=== PATIENT | female | born 1970 | race Caucasian/White ===

== ENCOUNTER → 2017-11-21 | Outpatient (CLI) | payer BC | END | disposition home or self-care (01) | LOC: KCIC MAMMO 15:58 | DX: Z12.31 Encounter for screening mammogram for malignant neoplasm of breast (principal) | CPT/HCPCS: 77067 ==

== ENCOUNTER → 2017-11-29 | Outpatient (CLI) | payer BC | END | disposition home or self-care (01) | LOC: KCIC MAMMO 13:55 | DX: N63.21 Unspecified lump in the left breast, upper outer quadrant (principal) | CPT/HCPCS: 76641; 77065 ==

== ENCOUNTER → 2017-12-16 | Outpatient (CLI) | payer BC | END | disposition home or self-care (01) | LOC: US 13:47 | DX: N63.20 Unspecified lump in the left breast, unspecified quadrant (principal) | CPT/HCPCS: 19085; 76942; 77065; C1713 ==

== ENCOUNTER → 2018-02-16 | Outpatient (CLI) | payer BC | END | disposition home or self-care (01) | LOC: KCIC US 07:51 | DX: R10.11 Right upper quadrant pain (principal) | CPT/HCPCS: 76705 ==

== ENCOUNTER 2018-05-24 16:19 | Emergency (ER) | payer BC ==
[~2018-05-24] VITALS: Ht 165.1 cm; Wt 102.1 kg
[2018-05-24 16:45] LABS: BASO # 0.1 x10^3/uL (0.0-0.2); BASO % 1 % (0-3); EOS # 0.1 x10^3/uL (0.0-0.7); EOS % 2 % (0-3); HEMATOCRIT 41.9 % (36.0-47.0); HEMOGLOBIN 14.2 g/dL (12.0-15.5); LYMPH # 2.5 x10^3/uL (1.0-4.8); LYMPH % 30 % (24-48); MEAN CORPUSCULAR HEMOGLOBIN 31 pg (25-35); MEAN CORPUSCULAR HGB CONC 34 g/dL (31-37); MEAN CORPUSCULAR VOLUME 90 fL (79-100); MONO # 0.6 x10^3/uL (0.0-1.1); MONO % 7 % (0-9); NEUT # 4.9 x10^3uL (1.8-7.7); NEUT % 60 % (31-73); PLATELET COUNT 263 x10^3/uL (140-400); RED BLOOD COUNT 4.66 x10^6/uL (3.50-5.40); RED CELL DISTRIBUTION WIDTH 14.4 % (11.5-14.5); WHITE BLOOD COUNT 8.3 x10^3/uL (4.0-11.0)
--- NOTE | 2018-05-24 16:49 | EKG ---
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
[2018-05-24 16:57] LABS: CALCIUM 9.2 mg/dL (8.5-10.1); CREATININE 0.7 mg/dL (0.6-1.0); GFR 89.3; POTASSIUM 3.6 mmol/L (3.5-5.1)
[2018-05-24 17:03] LABS: ALBUMIN 3.9 g/dL (3.4-5.0); ALBUMIN/GLOBULIN RATIO 0.9 (1.0-1.7); TOTAL BILIRUBIN 0.2 mg/dL (0.2-1.0); TOTAL PROTEIN 8.2 g/dL (6.4-8.2)
--- NOTE | 2018-05-24 17:09 | PHYS DOC ---
Past Medical History Past Medical History: Other Additional Past Medical Histor: PALPITATIONS, HEP C Past Surgical History: Hysterectomy, Tonsillectomy, Tubal ligation Additional Information: Quit smoking 3 years ago Alcohol Use: None Drug Use: None Adult General Chief Complaint Chief Complaint: RAPID HEART RATE HPI HPI 48-year-old otherwise healthy female who has struggled with paroxysmal tachycardia over the past several months. She is seen multiple physicians including the local cardiology group who has been unable to figure out what her tachycardia is from. She states it starts she becomes dizzy a little lightheaded feels like her heart skip a beat out of her chest and then it spontaneously resolves. Today she had another one of these episodes that was caught at her primary care office that looked like either SVT or A. fib with RVR. On arrival to the emergency department she was symptom-free stating that her tachycardia had stopped. She denies any chest pain or shortness of breath.[] Review of Systems Review of Systems Constitutional: Denies fever or chills [] Eyes: Denies change in visual acuity, redness, or eye pain [] HENT: Denies nasal congestion or sore throat [] Respiratory: Denies cough or shortness of breath [] Cardiovascular: No additional information not addressed in HPI [] GI: Denies abdominal pain, nausea, vomiting, bloody stools or diarrhea [] : Denies dysuria or hematuria [] Musculoskeletal: Denies back pain or joint pain [] Integument: Denies rash or skin lesions [] Neurologic: Denies headache, focal weakness or sensory changes [] Endocrine: Denies polyuria or polydipsia [] All other systems were reviewed and found to be within normal limits, except as documented in this note. Allergies Allergies Allergies Coded Allergies Type Severity Reaction Last Updated Verified Penicillins Allergy Intermediate Unknown 05/24/18 Yes Physical Exam Physical Exam Constitutional: Well developed, well nourished, no acute distress, non-toxic appearance. [] HENT: Normocephalic, atraumatic, bilateral external ears normal, oropharynx moist, no oral exudates, nose normal. [] Eyes: PERRLA, EOMI, conjunctiva normal, no discharge. [] Neck: Normal range of motion, no tenderness, supple, no stridor. [] Cardiovascular:Heart rate regular rhythm, no murmur [] Lungs & Thorax: Bilateral breath sounds clear to auscultation [] Abdomen: Bowel sounds normal, soft, no tenderness, no masses, no pulsatile masses. [] Skin: Warm, dry, no erythema, no rash. [] Back: No tenderness, no CVA tenderness. [] Extremities: No tenderness, no cyanosis, no clubbing, ROM intact, no edema. [] Neurologic: Alert and oriented X 3, normal motor function, normal sensory function, no focal deficits noted. [] Psychologic: Affect normal, judgement normal, mood normal. [] Current Patient Data Vital Signs Vital Signs Date Time Temp Pulse Resp B/P (MAP) Pulse Ox O2 Delivery O2 Flow Rate FiO2 05/24/18 16:27 98.1 78 16 128/68 (88) 98 98.1 Lab Values Laboratory Tests Test 05/24/18 16:32 White Blood Count 8.3 x10^3/uL (4.0-11.0) Red Blood Count 4.66 x10^6/uL (3.50-5.40) Hemoglobin 14.2 g/dL (12.0-15.5) Hematocrit 41.9 % (36.0-47.0) Mean Corpuscular Volume 90 fL (79-100) Mean Corpuscular Hemoglobin 31 pg (25-35) Mean Corpuscular Hemoglobin Concent 34 g/dL (31-37) Red Cell Distribution Width 14.4 % (11.5-14.5) Platelet Count 263 x10^3/uL (140-400) Neutrophils (%) (Auto) 60 % (31-73) Lymphocytes (%) (Auto) 30 % (24-48) Monocytes (%) (Auto) 7 % (0-9) Eosinophils (%) (Auto) 2 % (0-3) Basophils (%) (Auto) 1 % (0-3) Neutrophils # (Auto) 4.9 x10^3uL (1.8-7.7) Lymphocytes # (Auto) 2.5 x10^3/uL (1.0-4.8) Monocytes # (Auto) 0.6 x10^3/uL (0.0-1.1) Eosinophils # (Auto) 0.1 x10^3/uL (0.0-0.7) Basophils # (Auto) 0.1 x10^3/uL (0.0-0.2) Sodium Level 139 mmol/L (136-145) Potassium Level 3.6 mmol/L (3.5-5.1) Chloride Level 103 mmol/L (98-107) Carbon Dioxide Level 27 mmol/L (21-32) Anion Gap 9 (6-14) Blood Urea Nitrogen 22 mg/dL (7-20) H Creatinine 0.7 mg/dL (0.6-1.0) Estimated GFR (Cockcroft-Gault) 89.3 BUN/Creatinine Ratio 31 (6-20) H Glucose Level 103 mg/dL (70-99) H Calcium Level 9.2 mg/dL (8.5-10.1) Total Bilirubin 0.2 mg/dL (0.2-1.0) Aspartate Amino Transferase (AST) 11 U/L (15-37) L Alanine Aminotransferase (ALT) 22 U/L (14-59) Alkaline Phosphatase 94 U/L (46-116) Total Protein 8.2 g/dL (6.4-8.2) Albumin 3.9 g/dL (3.4-5.0) Albumin/Globulin Ratio 0.9 (1.0-1.7) L Laboratory Tests 05/24/18 16:32 Laboratory Tests 05/24/18 16:32 EKG EKG [EKG: Normal sinus rhythm rate of [address]-T changes] Radiology/Procedures Radiology/Procedures [] Course & Med Decision Making Course & Med Decision Making Pertinent Labs and Imaging studies reviewed. (See chart for details) [ED course: Evaluation reveals 48-year-old female with what appears to be paroxysmal atrial fibrillation. I will send her back to the [employer] websphere commerce developer's office for further evaluation as an outpatient as she is asymptomatic here.] Dragon Disclaimer Dragon Disclaimer This electronic medical record was generated, in whole or in part, using a voice recognition dictation system. Departure Departure Impression: Primary Impression: Paroxysmal atrial fibrillation with rapid ventricular response Disposition: 01 HOME, SELF-CARE Condition: STABLE Referrals: DANIEL HYDE PA-C (PCP) ASHTYN CULP MD Follow with Dr. Culp this week or early next week for recheck. Patient Instructions: Atrial Fibrillation, Supraventricular Tachycardia Additional Instructions: Return to the emergency department with any new or concerning symptoms YULIYA FOLEY DO May 24, 2018 17:09
[2018-05-24 17:35] VITALS: BP 118/72
== END 2018-05-24 17:31 | disposition home or self-care (01) ==
LOC: ER 16:19
DX: I48.0 Paroxysmal atrial fibrillation (principal); Z90.710 Acquired absence of both cervix and uterus; Z90.89 Acquired absence of other organs; Z98.51 Tubal ligation status; Z87.891 Personal history of nicotine dependence; Z88.0 Allergy status to penicillin
CPT/HCPCS: 36415; 80053; 84484; 85025; 93005; 99285-25

== ENCOUNTER → 2018-06-29 | Outpatient (CLI) | payer BC ==
--- NOTE | 2018-06-29 15:02 | CARD ---
MR#: [id number] Date of Study: 06/29/2018 Ordering Physician: ASHTYN CULP, Referring Physician: ASHTYN CULP Tech: Viridiana Givens RDCS APPROVED REPORT EXAM: Two-dimensional and M-mode echocardiogram with Doppler and color Doppler. Other Information Quality : AverageHR: 64bpm Rhythm : PVC's INDICATION Arrhythmia 2D DIMENSIONS RVDd2.4 (2.9-3.5cm)Left Atrium(2D)2.7 (1.6-4.0cm) IVSd0.7 (0.7-1.1cm)Aortic Root(2D)3.5 (2.0-3.7cm) LVDd5.3 (3.9-5.9cm)LVOT Diameter1.9 (1.8-2.4cm) PWd0.9 (0.7-1.1cm)LVDs3.4 (2.5-4.0cm) FS (%) 35.8 %SV87.4 ml LVEF(%)64.9 (>50%) M-Mode DIMENSIONS Left Atrium(MM)2.73 (2.5-4.0cm)Aortic Root3.52 (2.2-3.7cm) Aortic Valve AoV Peak Gen.133.6cm/sAoV VTI26.3cm AO Peak GR.7.1mmHgLVOT Peak Gen.88.9cm/s AO Mean GR.3mmHgAVA (VMAX)1.79cm2 GUANAKO (VTI)2.10cm2 Mitral Valve MV E Aopjjdmc64.3cm/sMV E Peak Gr.2mmHg MV DECEL [id number] A Luxdndkz61.4cm/s MV E Mean Gr.1mmHgE/A Ratio1.9 MV A Vcohzpux362sh Pulmonary Valve PV Peak Srzsgjuu60.2cm/s Tricuspid Valve TR P. Fatrtymn378ru/sRAP OCUMBCEO6ftUh TR Peak Gr.94mvIuGMMA98foVp Pulmonary Vein S1 Oicxdqjp20.3cm/sD2 Xtptxeuk87.4cm/s PVa kaqdsvdw451vroj LEFT VENTRICLE The left ventricle is normal size. There is normal left ventricular wall thickness. The left ventricu lar systolic function is normal. The Ejection Fraction is 60-65%. There is normal LV segmental wall m otion. The left ventricular diastolic function and filling is normal for age. RIGHT VENTRICLE The right ventricle is normal size. There is normal right ventricular wall thickness. The right ventr icular systolic function is normal. ATRIA The left atrium size is normal. The right atrium size is normal. The interatrial septum is intact wit h no evidence for an atrial septal defect or patent foramen ovale as noted on 2-D or Doppler imaging. AORTIC VALVE The aortic valve is trileaflet. The aortic valve is normal in structure and function. Doppler and Col or Flow revealed no significant aortic regurgitation. There is no significant aortic valvular stenosi s. MITRAL VALVE The mitral valve is normal in structure and function. There is no evidence of mitral valve prolapse. There is no mitral valve stenosis. Doppler and Color Flow revealed no mitral valve regurgitation note d. TRICUSPID VALVE The tricuspid valve is normal in structure and function. Doppler and Color Flow revealed trace tricus pid regurgitation. The PA pressure was estimated at 16 mmHg. There is no tricuspid valve prolapse or vegetation. There is no tricuspid valve stenosis. PULMONIC VALVE The pulmonary valve is normal in structure and function. Doppler and Color Flow revealed trace pulmon ic valvular regurgitation. There is no pulmonic valvular stenosis. GREAT VESSELS The aortic root is normal in size. The ascending aorta is normal in size. PERICARDIAL EFFUSION There is no evidence of significant pericardial effusion. Critical Notification Critical Value: No <Conclusion> The left ventricular systolic function is normal. The Ejection Fraction is 60-65%. There is normal LV segmental wall motion. Doppler and Color Flow revealed trace tricuspid regurgitation. The PA pressure was estimated at 16 mmHg. There is no evidence of significant pericardial effusion. Signed by : Ashtyn Culp, Electronically Approved : 06/29/2018 15:01:25
== END | disposition home or self-care (01) ==
LOC: ECHO 14:00
PROVIDERS: ATTEND Internal Medicine Cardiovascular Disease
DX: I48.0 Paroxysmal atrial fibrillation (principal)
CPT/HCPCS: 93306

== ENCOUNTER 2018-08-15 07:08 | Emergency (ER) | payer BC ==
[~2018-08-15] VITALS: Ht 165.1 cm; Wt 99.8 kg
[2018-08-15] MEDS ORDERED: ASPIRIN CHEWABLE 81 MG TABLET. PO ONE (07:30)
--- NOTE | 2018-08-15 07:32 | PHYS DOC ---
Past Medical History Past Medical History: Other Additional Past Medical Histor: PALPITATIONS, HEP C (status post treatment) Past Surgical History: Hysterectomy, Tonsillectomy, Tubal ligation Smoking: Cigarettes (The patient is a nonsmoker.) Alcohol Use: None Drug Use: None Adult General Chief Complaint Chief Complaint: Palpitations [facility] HPI Patient is a 48-year-old female, who has a past history of prior palpitations, who presents to the emergency department for evaluation. She states that she was driving to work, when she felt her heart start beating very fast and heavily , and she became somewhat lightheaded and had some heaviness in her chest. Her symptoms lasted about 5 or 10 minutes, and have completely resolved by the time the patient's arrival in the emergency department. She is not having any chest pain at this time. She denies any pleuritic pain. She is not having any residual shortness of breath. She states that she has a past history of palpitations in the past. She states that she has seen an textile machine operator, referred by her mortgage closer here, and she had an ablation done this past , about 5 days ago. She states that although she would have atrial fibrillation at times, she was told by her textile machine operator, that her primary problem was SVT which would then degenerated into atrial fibrillation, so she underwent an ablation for SVT. She takes metoprolol once daily, although she is uncertain of the dose. She takes it at 11 AM, and has not yet taken it today. She also takes a baby aspirin in the evenings. There are no alleviating or exacerbating factors to the patient's symptoms. Review of Systems Review of Systems Constitutional: Denies fever or chills [] Eyes: Denies change in visual acuity, redness, or eye pain [] HENT: Denies nasal congestion or sore throat [] Respiratory: Denies cough or current shortness of breath, denies pleuritic pain [] Cardiovascular: No additional information not addressed in HPI [] GI: Denies abdominal pain, nausea, vomiting, bloody stools or diarrhea [] : Denies dysuria or hematuria [] Musculoskeletal: Denies back pain or joint pain [] Integument: Denies rash or skin lesions [] Neurologic: Denies headache, focal weakness or sensory changes [] Endocrine: Denies polyuria or polydipsia [] All other systems were reviewed and found to be within normal limits, except as documented in this note. Current Medications Current Medications Current Medications Medications (Trade) Dose Ordered Sig/Demar Start Time Stop Time Status Last Admin Dose Admin Aspirin (Children'S Aspirin) 324 mg 1X ONCE 08/15/18 07:30 08/15/18 07:31 DC 08/15/18 08:07 324 MG Allergies Allergies Allergies Coded Allergies Type Severity Reaction Last Updated Verified Penicillins Allergy Intermediate Unknown 05/24/18 Yes Physical Exam Physical Exam PHYSICAL EXAM: CONSTITUTIONAL: Well developed, well nourished HEAD: normocephalic, atraumatic EENT: PERRL, EOMI. Conjunctivae normal color, sclerae non-icteric; moist mucous membranes. NECK: Supple, non-tender; no meningismus. LUNGS: Lungs CTA, breathing even and unlabored. Normal air movement. HEART: Regular rate and rhythm with occasional ectopic beats which corresponded PVCs on the monitor, no murmur CHEST: No deformity; non-tender ABDOMEN: The abdomen is soft, and non-tender, no masses or bruits. EXTREM: Normal ROM; no deformity, no calf tenderness. Normal pulses palpable in all extremities. There is no pedal edema. SKIN: No rash; no diaphoresis NEURO: Alert; normal speech and cognition; CN's grossly intact; strength grossly intact without focal deficit. BACK: No CVA TTP. Current Patient Data Vital Signs Vital Signs Date Time Temp Pulse Resp B/P (MAP) Pulse Ox O2 Delivery O2 Flow Rate FiO2 08/15/18 07:20 98.2 84 18 135/58 (83) 99 Room Air 98.2 Lab Values Laboratory Tests Test 08/15/18 08:00 White Blood Count 7.1 x10^3/uL (4.0-11.0) Red Blood Count 4.26 x10^6/uL (3.50-5.40) Hemoglobin 13.0 g/dL (12.0-15.5) Hematocrit 39.0 % (36.0-47.0) Mean Corpuscular Volume 92 fL (79-100) Mean Corpuscular Hemoglobin 31 pg (25-35) Mean Corpuscular Hemoglobin Concent 33 g/dL (31-37) Red Cell Distribution Width 13.8 % (11.5-14.5) Platelet Count 257 x10^3/uL (140-400) Neutrophils (%) (Auto) 63 % (31-73) Lymphocytes (%) (Auto) 27 % (24-48) Monocytes (%) (Auto) 8 % (0-9) Eosinophils (%) (Auto) 2 % (0-3) Basophils (%) (Auto) 1 % (0-3) Neutrophils # (Auto) 4.5 x10^3uL (1.8-7.7) Lymphocytes # (Auto) 1.9 x10^3/uL (1.0-4.8) Monocytes # (Auto) 0.5 x10^3/uL (0.0-1.1) Eosinophils # (Auto) 0.1 x10^3/uL (0.0-0.7) Basophils # (Auto) 0.1 x10^3/uL (0.0-0.2) Sodium Level 143 mmol/L (136-145) Potassium Level 4.2 mmol/L (3.5-5.1) Chloride Level 106 mmol/L (98-107) Carbon Dioxide Level 30 mmol/L (21-32) Anion Gap 7 (6-14) Blood Urea Nitrogen 20 mg/dL (7-20) Creatinine 0.7 mg/dL (0.6-1.0) Estimated GFR (Cockcroft-Gault) 89.3 BUN/Creatinine Ratio 29 (6-20) H Glucose Level 98 mg/dL (70-99) Calcium Level 9.2 mg/dL (8.5-10.1) Magnesium Level 2.0 mg/dL (1.8-2.4) Total Bilirubin 0.3 mg/dL (0.2-1.0) Aspartate Amino Transferase (AST) 11 U/L (15-37) L Alanine Aminotransferase (ALT) 21 U/L (14-59) Alkaline Phosphatase 80 U/L (46-116) Creatine Kinase 71 U/L (26-192) Creatine Kinase MB (Mass) 0.9 ng/mL (0.0-3.6) Creatine Kinase MB Relative Index % (0-4) Troponin I Quantitative 0.043 ng/mL (0.000-0.055) XJ-Czi-J-Type Natriuretic Peptide 122 pg/mL (0-124) Total Protein 7.5 g/dL (6.4-8.2) Albumin 3.2 g/dL (3.4-5.0) L Albumin/Globulin Ratio 0.7 (1.0-1.7) L Thyroid Stimulating Hormone (TSH) 5.229 uIU/mL (0.358-3.74) H Free Thyroxine 0.95 ng/dL (0.76-1.46) Laboratory Tests 08/15/18 08:00 Laboratory Tests 08/15/18 08:00 EKG EKG [Normal sinus rhythm at a rate of 67 beats for minute, normal axis, normal intervals. There are no acute ischemic ST/T changes. No ectopy is noted. There is some motion artifact present.] Cardiac monitor worker interpretation: Normal sinus rhythm at a rate then between 70 and 80, with rare PVCs. Radiology/Procedures Radiology/Procedures [PROCEDURE: PORTABLE CHEST 1V Portable chest, 08/15/2018: HISTORY: Chest pain, heart palpitations The heart size and pulmonary vascularity are normal. No pulmonary infiltrate is seen. There is no evidence of pleural fluid. IMPRESSION: No acute cardiopulmonary abnormality is detected.] Course & Med Decision Making Course & Med Decision Making Pertinent Labs and Imaging studies reviewed. (See chart for details) [8:50 AM] the patient's condition remained stable. She still having rare PVCs but remains in sinus rhythm without any other arrhythmia. She is feeling much better and feels well enough to go home. She is not having any current chest discomfort. I do suspect that she did have recurrence of some arrhythmia. I discussed the case with her mortgage closer, Dr. Culp, who agreed with further outpatient monitoring and will set the patient up with an event monitor, and I discussed return precautions with the patient. Dragon Disclaimer Dragon Disclaimer This electronic medical record was generated, in whole or in part, using a voice recognition dictation system. Departure Departure Impression: Primary Impression: Palpitations Additional Impression: PVC (premature ventricular contraction) Disposition: 01 HOME, SELF-CARE Condition: STABLE Referrals: DANIEL HYDE PA-C (PCP) ASHTYN CULP MD Patient Instructions: Palpitations, Premature Ventricular Contraction Additional Instructions: Continue taking your previously prescribed medications. Problem Qualifiers SONU EDGAR MD Aug 15, 2018 07:32
--- NOTE | 2018-08-15 08:01 | RAD ---
Portable chest, 08/15/2018: HISTORY: Chest pain, heart palpitations The heart size and pulmonary vascularity are normal. No pulmonary infiltrate is seen. There is no evidence of pleural fluid. IMPRESSION: No acute cardiopulmonary abnormality is detected. Electronically signed by: Abebe Christopher MD (08/15/2018 7:57 AM) [facility]
--- NOTE | 2018-08-15 08:10 | EKG ---
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
[2018-08-15 08:21] LABS: BASO # 0.1 x10^3/uL (0.0-0.2); BASO % 1 % (0-3); EOS # 0.1 x10^3/uL (0.0-0.7); EOS % 2 % (0-3); LYMPH # 1.9 x10^3/uL (1.0-4.8); LYMPH % 27 % (24-48); MEAN CORPUSCULAR HEMOGLOBIN 31 pg (25-35); MEAN CORPUSCULAR HGB CONC 33 g/dL (31-37); MEAN CORPUSCULAR VOLUME 92 fL (79-100); MONO # 0.5 x10^3/uL (0.0-1.1); MONO % 8 % (0-9); NEUT # 4.5 x10^3uL (1.8-7.7); NEUT % 63 % (31-73); PLATELET COUNT 257 x10^3/uL (140-400); RED BLOOD COUNT 4.26 x10^6/uL (3.50-5.40); RED CELL DISTRIBUTION WIDTH 13.8 % (11.5-14.5); WHITE BLOOD COUNT 7.1 x10^3/uL (4.0-11.0)
[2018-08-15 08:24] LABS: CALCIUM 9.2 mg/dL (8.5-10.1); CREATININE 0.7 mg/dL (0.6-1.0); GFR 89.3; POTASSIUM 4.2 mmol/L (3.5-5.1)
[2018-08-15 08:30] LABS: ALBUMIN 3.2 g/dL (3.4-5.0); ALBUMIN/GLOBULIN RATIO 0.7 (1.0-1.7); TOTAL BILIRUBIN 0.3 mg/dL (0.2-1.0); TOTAL PROTEIN 7.5 g/dL (6.4-8.2)
[2018-08-15 08:37] LABS: FREE T4 0.95 ng/dL (0.76-1.46); THYROID STIM HORMONE (TSH) 5.229 uIU/mL (0.358-3.74)
[2018-08-15 08:39] LABS: CREATINE KINASE 71 U/L (26-192)
[2018-08-15 09:20] VITALS: BP 106/71
== END 2018-08-15 09:26 | disposition home or self-care (01) ==
LOC: ER 07:08
DX: I49.3 Ventricular premature depolarization (principal); R00.2 Palpitations; R42 Dizziness and giddiness; Z90.710 Acquired absence of both cervix and uterus; Z90.89 Acquired absence of other organs; Z98.51 Tubal ligation status; Z88.0 Allergy status to penicillin
CPT/HCPCS: 36415; 71045; 80053; 82553; 83735; 83880; 84439; 84443; 84484; 85025; 93005; 99284-25

== ENCOUNTER → 2019-03-13 | Outpatient (CLI) | payer OTHER ==
--- NOTE | 2019-03-13 12:09 | KCIC ---
Bilateral diagnostic digital mammograms: Reason for examination: Left breast pain at biopsy site which occurred one week ago for one day only. Comparison is made to previous studies dated 11/21/2017 and 12/16/2017. Interpretation was made with the benefit of CAD. The skin and nipples show no abnormalities. No abnormal axillary lymph nodes are seen. The breast parenchyma is heterogeneously dense. (Breast density: Category C.) There are no dominant masses, suspicious calcifications or architectural distortion. Biopsy clip remains present on the left. Impression: No evidence of malignancy. Ultrasound to follow. Your patient's mammogram demonstrates that she has dense breast tissue (breast density category C or D), which could hide abnormalities, and if she has other risk factors for breast cancer that have been identified, she might benefit from supplemental screening tests that may be suggested by you as her ordering physician. Dense breast tissue, in and of itself, is a relatively common condition. Therefore, this information is not provided to cause undue concern, but rather to raise your awareness and to promote discussion with your patient regarding the presence of other risk factors, in addition to dense breast tissue. Your patient's mammography results will be sent to her. BI-RAD Category 0: Incomplete. Needs additional imaging evaluation. Left breast ultrasound: Ultrasound examination was performed in the area of clinical concern and at the left axilla. There are postbiopsy changes with scarring at the 2:00 position 7 cm from the nipple with no additional focal lesion identified in the area of clinical concern. No abnormal appearing lymph nodes are seen in the axilla. IMPRESSION: Postbiopsy changes at the 2:00 position which correspond to the area of clinical concern but no other focal lesions identified in the left breast. Recommend routine mammographic follow-up. BI-RADS Category 2: Benign. "Our facility is accredited by the [employer] Mammography Program." This patient's information has been entered into a reminder system for the patient to be notified with the results of her examination and a target date for the next mammogram. Electronically signed by: Chelsea Doyle MD (03/13/2019 12:05 PM) [id number]
== END | disposition home or self-care (01) ==
LOC: KCIC MAMMO 09:36
PROVIDERS: ATTEND Internal Medicine
DX: N64.4 Mastodynia (principal); Z98.890 Other specified postprocedural states
CPT/HCPCS: 76641; 77066

== ENCOUNTER → 2019-08-13 | Outpatient (CLI) | payer OTHER ==
--- NOTE | 2019-08-13 08:44 | CARD ---
MR#: [id number] Date of Study: 08/13/2019 Ordering Physician: ASHTYN CARR, Referring Physician: ASHTYN CARR Tech: Janice Mejia RDCS APPROVED REPORT EXAM: Two-dimensional and M-mode echocardiogram with Doppler and color Doppler. Other Information Quality : Good Rhythm : NSR INDICATION Atrial Fibrillation S/P Ablation 07/2018 2D DIMENSIONS RVDd3.0 (2.9-3.5cm)Left Atrium(2D)3.3 (1.6-4.0cm) IVSd0.9 (0.7-1.1cm)Aortic Root(2D)2.9 (2.0-3.7cm) LVDd4.9 (3.9-5.9cm)LVOT Diameter2.0 (1.8-2.4cm) PWd0.9 (0.7-1.1cm)LVDs3.4 (2.5-4.0cm) FS (%) 30.2 %SV64.6 ml LVEF(%)57.4 (>50%) Aortic Valve AoV Peak Gen.123.9cm/sAoV VTI27.7cm AO Peak GR.6.1mmHgLVOT Peak Gen.112.0cm/s AO Mean GR.4mmHgAVA (VMAX)2.77cm2 GUANAKO (VTI)2.70cm2 Mitral Valve MV E Pmxkfwri22.9cm/sMV DECEL FBYF145ox MV A Flhyurhw22.2cm/sE/A Ratio1.6 Tricuspid Valve TR P. Ndibniah048tr/sRAP WWWWSHBK1eaJe TR Peak Gr.55smJzVPYL48eiYu Pulmonary Vein S1 Vhrihfpw14.3cm/sD2 Xcbhuene15.2cm/s LEFT VENTRICLE The left ventricle is normal size. There is normal left ventricular wall thickness. The left ventricu lar systolic function is normal and the ejection fraction is within normal range. The Ejection Fracti on is 50-55%. There is normal LV segmental wall motion. The left ventricular diastolic function and f illing is normal for age. RIGHT VENTRICLE The right ventricle is normal size. The right ventricular systolic function is normal. ATRIA The left atrium size is normal. The right atrium size is normal. The interatrial septum is intact wit h no evidence for an atrial septal defect or patent foramen ovale as noted on 2-D or Doppler imaging. AORTIC VALVE The aortic valve is normal in structure and function. Doppler and Color Flow revealed no significant aortic regurgitation. There is no significant aortic valvular stenosis. MITRAL VALVE The mitral valve is normal in structure and function. There is no evidence of mitral valve prolapse. There is no mitral valve stenosis. Doppler and Color Flow revealed no mitral valve regurgitation note d. TRICUSPID VALVE The tricuspid valve is normal in structure and function. Doppler and Color Flow revealed mild tricusp id regurgitation. The PA pressure was estimated at 28 mmHg. There is no tricuspid valve stenosis. PULMONIC VALVE The pulmonary valve is normal in structure and function. Doppler and Color Flow revealed mild pulmoni c valvular regurgitation. There is no pulmonic valvular stenosis. GREAT VESSELS The aortic root is normal in size. The ascending aorta is normal in size. The IVC is normal in size a nd collapses >50% with inspiration. PERICARDIAL EFFUSION There is no evidence of significant pericardial effusion. Critical Notification Critical Value: No <Conclusion> The left ventricle is normal size. The left ventricular systolic function is normal and the ejection fraction is within normal range. The Ejection Fraction is 50-55%. Doppler and Color Flow revealed no significant aortic regurgitation. There is no significant aortic valvular stenosis. Doppler and Color Flow revealed no mitral valve regurgitation noted. Doppler and Color Flow revealed mild tricuspid regurgitation. The PA pressure was estimated at 28 mmHg. Signed by : Micah Mcmullen MD Electronically Approved : 08/13/2019 08:43:32
== END | disposition home or self-care (01) ==
LOC: ECHO 07:40
PROVIDERS: ATTEND Internal Medicine Cardiovascular Disease
DX: I08.8 Other rheumatic multiple valve diseases (principal); I48.0 Paroxysmal atrial fibrillation
CPT/HCPCS: 93306

== ENCOUNTER 2021-03-04 20:11 | Emergency (ER) | payer BC, OTHER ==
[~2021-03-04] VITALS: Ht 154.9 cm; Wt 113.0 kg
[2021-03-04 22:09] LABS: BASO # 0.1 x10^3/uL (0.0-0.2); BASO % 1 % (0-3); EOS # 0.2 x10^3/uL (0.0-0.7); EOS % 1 % (0-3); HEMATOCRIT 41.4 % (36.0-47.0); HEMOGLOBIN 13.7 g/dL (12.0-15.5); LYMPH # 2.4 x10^3/uL (1.0-4.8); LYMPH % 22 % (24-48); MEAN CORPUSCULAR HEMOGLOBIN 30 pg (25-35); MEAN CORPUSCULAR HGB CONC 33 g/dL (31-37); MEAN CORPUSCULAR VOLUME 90 fL (79-100); MONO # 0.8 x10^3/uL (0.0-1.1); MONO % 8 % (0-9); NEUT # 7.4 x10^3/uL (1.8-7.7); NEUT % 68 % (31-73); PLATELET COUNT 280 x10^3/uL (140-400); RED BLOOD COUNT 4.59 x10^6/uL (3.50-5.40); RED CELL DISTRIBUTION WIDTH 13.9 % (11.5-14.5); WHITE BLOOD COUNT 10.8 x10^3/uL (4.0-11.0)
[2021-03-04] MEDS: MORPHINE SULFATE 4 MG/ML VIAL. IV/SQ PRN ×2 (22:13→22:57)
[2021-03-04 22:22] LABS: CALCIUM 9.1 mg/dL (8.5-10.1); CREATININE 0.9 mg/dL (0.6-1.0); POTASSIUM 4.1 mmol/L (3.5-5.1)
[2021-03-04 22:28] LABS: ALBUMIN 3.9 g/dL (3.4-5.0); MAGNESIUM 2.2 mg/dL (1.8-2.4); TOTAL BILIRUBIN 0.2 mg/dL (0.2-1.0)
[2021-03-04] MEDS ORDERED: CONTRAST GIVEN. MC PRN (22:30)
[2021-03-04] MEDS ORDERED: IOHEXOL 350 MG/ML 100 ML VIAL. IV ONE (22:30)
[2021-03-04 23:00] VITALS: BP 153/89
--- NOTE | 2021-03-04 23:02 | PHYS DOC ---
Past Medical History Past Medical History: Other Additional Past Medical Histor: PALPITATIONS, HEP C (status post treatment), SVT (JOANNA MARKHAM COSMETICS SUPERVISOR) Past Surgical History: Hysterectomy, Tonsillectomy, Tubal ligation, Other Additional Past Surgical Histo: heart ablation (JOANNA MARKHAM COSMETICS SUPERVISOR) Smoking Status: Never Smoker Alcohol Use: None Drug Use: None (JOANNA MARKHAM COSMETICS SUPERVISOR) General Adult EDM: Chief Complaint: BACK PAIN OR INJURY HPI: HPI: Patient is a 51 year old female with no significant medical history who presents to the ED today complaining of 9 out of 10 left-sided upper back pain/scapula pain radiating to the left breast/chest, symptoms began 2 days ago. Patient states symptoms are worse when she raises her left upper extremity above her head. Patient denies anything specifically elevating her symptoms. She states symptoms have been intermittent. She states she is currently on antibiotics and Tylenol 3 for a dental infection, she states she tried taking the Tylenol 3 with no relief to her pain. Denies any fever, coughing, congestion. (JOANNA MARKHAM COSMETICS SUPERVISOR) Review of Systems: Review of Systems: Constitutional: Denies fever or chills. [] Eyes: Denies change in visual acuity. [] HENT: Reports dental infection. Denies nasal congestion or sore throat. [] Respiratory: Denies cough or shortness of breath. [] Cardiovascular: Reports left upper back pain radiating to the left chest GI: Denies abdominal pain, nausea, vomiting, bloody stools or diarrhea. [] : Denies dysuria. [] Musculoskeletal: Denies back pain or joint pain. [] Integument: Denies rash. [] Psychiatric: Denies depression or anxiety. [] (JOANNA MARKHAM COSMETICS SUPERVISOR) Heart Score: C/O Chest Pain: N/A Risk Factors: Risk Factors: DM, Current or recent (<one month) smoker, HTN, HLP, family his tory of CAD, obesity. Risk Scores: Score 0 - 3: 2.5% MACE over next 6 weeks - Discharge Home Score 4 - 6: 20.3% MACE over next 6 weeks - Admit for Clinical Observation Score 7 - 10: 72.7% MACE over next 6 weeks - Early Invasive Strategies (JOANNA MARKHAM COSMETICS SUPERVISOR) C/O Chest Pain: Yes HEART Score for Chest Pain: HEART Score for Chest Pain Response (Comments) Value History Slighlty/Non-Suspicious 0 ECG Normal 0 Age >45 - < 65 1 Risk Factors No Risk Factors 0 Troponin < Normal Limit 0 Total 1 (WILFRIDMARIN Quintana DO) Current Medications: Current Medications Medications (Trade) Dose Ordered Sig/Demar Start Time Stop Time Status Last Admin Dose Admin Info (CONTRAST GIVEN -- Rx MONITORING) 1 each PRN DAILY PRN 03/04/21 22:30 03/06/21 22:29 Iohexol (Omnipaque 350 Mg/ml) 90 ml 1X ONCE 03/04/21 22:30 03/04/21 22:31 DC 03/04/21 22:32 90 ML Morphine Sulfate (Morphine Sulfate) 4 mg PRN Q15MIN PRN 03/04/21 22:00 03/05/21 21:59 03/04/21 22:13 4 MG (JOANNA MARKHAM M COSMETICS SUPERVISOR) Allergies: Allergies: Allergies Coded Allergies Type Severity Reaction Last Updated Verified Penicillins Allergy Intermediate Unknown 05/24/18 Yes (JOANNA MARKHAM M COSMETICS SUPERVISOR) Physical Exam: PE: Constitutional: Well developed, well nourished, no acute distress, non-toxic appearance. [] HENT: Normocephalic, atraumatic, bilateral external ears normal, oropharynx coby st, no oral exudates, nose normal. [] Eyes: PERRLA, EOMI, conjunctiva normal, no discharge. [] Neck: Normal range of motion, no tenderness, supple, no stridor. [] Cardiovascular:Heart rate regular rhythm, reproducible left upper back pain radiating to the left chest when she raises her left upper extremity above her head Lungs & Thorax: Bilateral breath sounds clear to auscultation [] Abdomen: Bowel sounds normal, soft, no tenderness, no masses, no pulsatile masses. [] Skin: Warm, dry, no erythema, no rash. [] Back: No tenderness, no CVA tenderness. [] Extremities: No tenderness, no cyanosis, no clubbing, ROM intact, no edema. [] Neurologic: Alert and oriented X 3, normal motor function, normal sensory function, no focal deficits noted. [] Psychologic: Affect normal, judgement normal, mood normal. [] (JOANNA MARKHAM M COSMETICS SUPERVISOR) Current Patient Data: Labs: Laboratory Tests Test 03/04/21 21:55 White Blood Count 10.8 x10^3/uL (4.0-11.0) Red Blood Count 4.59 x10^6/uL (3.50-5.40) Hemoglobin 13.7 g/dL (12.0-15.5) Hematocrit 41.4 % (36.0-47.0) Mean Corpuscular Volume 90 fL (79-100) Mean Corpuscular Hemoglobin 30 pg (25-35) Mean Corpuscular Hemoglobin Concent 33 g/dL (31-37) Red Cell Distribution Width 13.9 % (11.5-14.5) Platelet Count 280 x10^3/uL (140-400) Neutrophils (%) (Auto) 68 % (31-73) Lymphocytes (%) (Auto) 22 % (24-48) L Monocytes (%) (Auto) 8 % (0-9) Eosinophils (%) (Auto) 1 % (0-3) Basophils (%) (Auto) 1 % (0-3) Neutrophils # (Auto) 7.4 x10^3/uL (1.8-7.7) Lymphocytes # (Auto) 2.4 x10^3/uL (1.0-4.8) Monocytes # (Auto) 0.8 x10^3/uL (0.0-1.1) Eosinophils # (Auto) 0.2 x10^3/uL (0.0-0.7) Basophils # (Auto) 0.1 x10^3/uL (0.0-0.2) Sodium Level 145 mmol/L (136-145) Potassium Level 4.1 mmol/L (3.5-5.1) Chloride Level 105 mmol/L (98-107) Carbon Dioxide Level 26 mmol/L (21-32) Anion Gap 14 (6-14) Blood Urea Nitrogen 19 mg/dL (7-20) Creatinine 0.9 mg/dL (0.6-1.0) Estimated GFR (Cockcroft-Gault) 66.0 BUN/Creatinine Ratio 21 (6-20) H Glucose Level 107 mg/dL (70-99) H Calcium Level 9.1 mg/dL (8.5-10.1) Magnesium Level 2.2 mg/dL (1.8-2.4) Total Bilirubin 0.2 mg/dL (0.2-1.0) Aspartate Amino Transferase (AST) 21 U/L (15-37) Alanine Aminotransferase (ALT) 20 U/L (14-59) Alkaline Phosphatase 87 U/L (46-116) Troponin I Quantitative < 0.017 ng/mL (0.000-0.055) EG-Pmf-D-Type Natriuretic Peptide 127 pg/mL (0-124) H Total Protein 8.0 g/dL (6.4-8.2) Albumin 3.9 g/dL (3.4-5.0) Albumin/Globulin Ratio 1.0 (1.0-1.7) Lipase 68 U/L (73-393) L Thyroid Stimulating Hormone (TSH) 3.673 uIU/mL (0.358-3.74) Laboratory Tests 03/04/21 21:55 Laboratory Tests 03/04/21 21:55 Vital Signs: Vital Signs Date Time Temp Pulse Resp B/P (MAP) Pulse Ox O2 Delivery O2 Flow Rate FiO2 03/04/21 22:13 25 93 03/04/21 21:45 98.1 80 171/101 (124) Room Air 98.1 (JOANNA MARKHAM APRN) EKG: EK interpreted by Dr. Yuen sinus rhythm heart rate 73 no STEMI [] (JOANNA MARKHAM APRN) EKG: Sinus rhythm 73 bpm, no axis deviation, normal intervals, no T wave inversions, no ST elevations or ST depressions (MARIN YUEN DO) Radiology/Procedures: Radiology/Procedures: [] (JOANNA MARKHAM APRN) Radiology/Procedures: IMAGING REPORT Signed PATIENT: JEREMIAH KENNEY ACCOUNT: [id number] : 1970 LOCATION: ER AGE: 51 SEX: F EXAM STATUS: REG ER ORD. PHYSICIAN: JOANNA MARKHAM APRN REASON: mid back pain r/o dissection PROCEDURE: CT ANGIO CHEST ABD PELVIS CT arteriogram of the chest with contrast, CT arteriogram the abdomen pelvis with contrast. HISTORY: Mid back pain CT arteriogram of the chest was done using 90 mL Omnipaque 350 contrast. Three- dimensional images were reconstructed. Pre and postcontrast imaging was obtained. Precontrast imaging shows no intramural hematoma. There is atelectasis or infiltrate in the lingula and left lower lobe. There is mild atelectasis in the right lung base. There is no central pulmonary embolus. Thoracic aorta is normal without an aneurysm or dissection. Origins the great vessels are widely patent. There is no thoracic compression fracture. IMPRESSION: 1. Atelectasis or infiltrates most prominent in the left lower lobe. 2. No pulmonary embolus noted. 3. No aortic aneurysm or dissection noted. End impression CT arteriogram abdomen pelvis CT arteriogram the abdomen pelvis was done for and after contrast. Three- dimensional images were reconstructed. There is no aortic aneurysm or intramural hematoma. A liver lesion is not identified. There is no calcified gallstone. Spleen and adrenal glands are normal. Pancreas is normal. There is no mass or hydronephrosis in the kidneys. Adrenal glands are normal. There is no free air or ascites. There is diverticulosis the colon without diverticulitis. Bladder is unremarkable. Patient's had a hysterectomy. Celiac and superior mesenteric arteries are widely patent. Renal arteries are patent. There is a small inferior mesenteric artery. There is no aortic aneurysm or dissection. Iliac arteries are unremarkable. There is no renal or ureteral calculus evident. There are multiple phleboliths in the pelvis. Appendix is normal. IMPRESSION: 1. No aortic aneurysm. 2. No calcified gallstone. 3. Normal appendix. 4. No renal or ureteral calculus. 5. No bowel obstruction or other acute finding in the abdomen or pelvis. PQRS Compliance Statement: One or more of the following individualized dose reduction techniques were utilized for this examination: 1. Automated exposure control 2. Adjustment of the mA and/or kV according to patient size 3. Use of iterative reconstruction technique Electronically signed by: Biju Mott MD (03/04/2021 11:24 PM) [facility] DICTATED and SIGNED BY: BIJU MOTT MD DATE: 03/04/21 [id number] ([facility] DO) Course & Med Decision Making: Course & Med Decision Making Pertinent Labs and Imaging studies reviewed. (See chart for details) This is a 51-year-old female patient presenting to the ED today complaining of left upper back pain radiating to the left chest/breast region, symptoms began 2 days ago. She is currently on antibiotics and Tylenol 3 for dental infection. EKG is negative, CBC CMP with no acute findings. CTA chest abdomen and pelvis pending to rule out dissection [address] 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 I reevaluated patient who c/o radiating left upper abdominal and left back pain. CT imaging consistent with pneumonia at location of patient's pain. Will prescribe antibiotics. Will discharge home with strict ED return precautions were given for syncope, neurologic deficits, severe pain, or chest pressure/tightness/heaviness. Encouraged urgent outpatient follow-up with PMD and cardiology. Life- threatening processes were considered but are low suspicion at this time, given history, physical exam and ED workup. Pt was educated on all prescription medications and adverse effects. All patient's questions were answered and pt was stable at time of discharge. Life/limb-threatening differential includes but is not limited to, aortic dissection/aneurysm, cauda equina syndrome, transverse myelitis, spinal cord/epidural compression syndromes, discitis, spinal stenosis, epidural abscess or hematoma, osteomyelitis, disc herniation, surgical abdomen, stable or unstable fracture, renal/ureteral colic, sepsis, meningitis, musculoskeletal injury, traumatic injury, intraabdominal/retroperitoneal or pelvic bleeding. I spoken with the patient and her caregivers. I explained the patient's condition, diagnoses and treatment plan based on the information available to me at this time. I have answered the patient and her caregiver's questions and addressed any concerns. The patient and her caregivers have a good understanding of patient's diagnosis, condition and treatment plan as can be expected at this point. Vital signs have been stable. Patient's condition is stable and appropriate for discharge from the emergency department. Patient will pursue further outpatient evaluation with primary care physician or other designated or consulting physician as outlined in the discharge instructions. The patient and/or caregivers are agreeable to this plan of care and follow-up instructions have been explained in detail. The patient and/or caregivers have received these instructions in written form and have expressed an understanding of the discharge instructions. The patient and/or caregivers are aware that any significant change of condition or worsening of symptoms should prompt immediate return to this or the closest emergency department or call to 911. (MARIN YUEN DOKristy Gutierrez Disclaimer: Brenda Disclaimer: This electronic medical record was generated, in whole or in part, using a voice recognition dictation system. (JOANNA MARKHAM COSMETICS SUPERVISOR) Departure Departure Impression: Primary Impression: Back pain Additional Impression: Left lower lobe pneumonia Disposition: HOME / SELF CARE / HOMELESS Condition: STABLE Referrals: DANIEL HYDE PA-C (PCP) Follow-up with your primary care physician in 24 to 48 hours OR FOLLOW UP WITH FAMILY MEDICINE: [address], [address] [place] [address] Patient Instructions: Pneumonia, Adult Additional Instructions: EMERGENCY DEPARTMENT GENERAL DISCHARGE INSTRUCTIONS Thank you for coming to [facility] Emergency Department (ED) today and trusting us with you care. We trust that you had a positive experience in our Emergency Department. If you wish to speak to the department management, you may call the Director at [phone]. YOUR FOLLOW UP INSTRUCTIONS ARE FOLLOWS: 1. Do you have a private Doctor? If you do not have a private doctor, please ask for a resource list of physicians or clinics that may be able to assist you with follow up care. 2. The Emergency Physicain has interpreted your x-rays. The X-Ray specialist will also review them. If there is a change in the findings, you will be notified in 48 hours when at all possible. 3. A lab test or culture has been done, your results will be reviewed and you will be notified if you need a change in treatment. ADDITIONAL INSTRUCTIONS AND INFORMATION: 1. Your care today has been supervised by a physician who is specially trained in emergency care. Many problems require more than one evaluation for a complete diagnosis and treatment. We recommend that you schedule your follow up appointment as recommended to ensure complete treatment of you illness or injury. If you are unable to obtain follow up care and continue to have a problem, or if your condition worsens, we recommend that you return to the ED. 2. We are not able to safely determine your condition over the phone nor are we able to give sound medical advice over the phone. For these safety reasons, if you call for medical advice we will ask you to come to the ED for further evaluation. 3. If you have any questions regarding these discharge instructions please call the ED at [phone]. SAFETY INFORMATION: In the interest of safety, wellness, and injury prevention; we encourage you to wear your sealbelt, if you smoke; quite smoking, and we encourage family to use a protective helmet for bicycling and other sporting events that present an increased risk for head injury. IF YOUR SYMPTOMS WORSEN OR NEW SYMPTOMS DEVELOP, OR YOU HAVE CONCERNS ABOUT YOUR CONDITION; OR IF YOUR CONDITION WORSENS WHILE YOU ARE WAITING FOR YOUR FOLLOW UP APPOINTMENT; EITHER CONTACT YOUR PRIMARY CARE DOCTOR, THE PHYSICIAN WHOSE NAME AND NUMBER YOU WERE GIVEN, OR RETURN TO THE ED IMMEDIATELY. Scripts Azithromycin (AZITHROMYCIN TABLET) 500 Mg Tablet 1 TAB PO DAILY for 7 Days, #7 TAB 0 Refills Prov: MARIN YUEN DO 03/04/21 JOANNA MARKHAM APRN Mar 04, 2021 23:02 MARIN YUEN DO Mar 04, 2021 23:36
--- NOTE | 2021-03-04 23:27 | RAD ---
CT arteriogram of the chest with contrast, CT arteriogram the abdomen pelvis with contrast. HISTORY: Mid back pain CT arteriogram of the chest was done using 90 mL Omnipaque 350 contrast. Three-dimensional images wer e reconstructed. Pre and postcontrast imaging was obtained. Precontrast imaging shows no intramural h ematoma. There is atelectasis or infiltrate in the lingula and left lower lobe. There is mild atelect asis in the right lung base. There is no central pulmonary embolus. Thoracic aorta is normal without an aneurysm or dissection. Origins the great vessels are widely patent. There is no thoracic compress ion fracture. IMPRESSION: 1. Atelectasis or infiltrates most prominent in the left lower lobe. 2. No pulmonary embolus noted. 3. No aortic aneurysm or dissection noted. End impression CT arteriogram abdomen pelvis CT arteriogram the abdomen pelvis was done for and after contrast. Three-dimensional images were tata nstructed. There is no aortic aneurysm or intramural hematoma. A liver lesion is not identified. Ther e is no calcified gallstone. Spleen and adrenal glands are normal. Pancreas is normal. There is no ma ss or hydronephrosis in the kidneys. Adrenal glands are normal. There is no free air or ascites. Ther e is diverticulosis the colon without diverticulitis. Bladder is unremarkable. Patient's had a hyster ectomy. Celiac and superior mesenteric arteries are widely patent. Renal arteries are patent. There i s a small inferior mesenteric artery. There is no aortic aneurysm or dissection. Iliac arteries are u nremarkable. There is no renal or ureteral calculus evident. There are multiple phleboliths in the pe lvis. Appendix is normal. IMPRESSION: 1. No aortic aneurysm. 2. No calcified gallstone. 3. Normal appendix. 4. No renal or ureteral calculus. 5. No bowel obstruction or other acute finding in the abdomen or pelvis. PQRS Compliance Statement: One or more of the following individualized dose reduction techniques were utilized for this examinat ion: 1. Automated exposure control 2. Adjustment of the mA and/or kV according to patient size 3. Use of iterative reconstruction technique Electronically signed by: Biju Mott MD (03/04/2021 11:24 PM) [facility]
[2021-03-04] MEDS ORDERED: KETOROLAC 15 MG/ML VIAL. IVP ONE (23:45)
[2021-03-04] MEDS ORDERED: AZITHROMYCIN 250 MG TABLET. PO ONE (23:45)
[2021-03-04] MEDS ORDERED: LIDOCAINE (700MG/PATCH) PATCH. TD SCH (23:46)
[2021-03-04] MEDS ORDERED: AZIT500T4 PO (23:47)
--- NOTE | 2021-03-05 06:20 | EKG ---
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
== END 2021-03-05 00:25 | disposition home or self-care (01) ==
LOC: ER 20:11
DX: J18.9 Pneumonia, unspecified organism (principal); Z20.822 Contact with and (suspected) exposure to COVID-19; M54.6 Pain in thoracic spine; Z88.0 Allergy status to penicillin
CPT/HCPCS: 36415; 71275; 74174; 80053; 83690; 83735; 83880; 84443; 84484; 85025; 93005; 96374; 96375; 96376; 99285; J1885; J2270; Q9967; U0003; U0005

== ENCOUNTER 2021-04-29 09:48 | Emergency (ER) | payer BC ==
[~2021-04-29] VITALS: Ht 165.1 cm; Wt 112.0 kg
[~2021-04-29 09:48] MED LIST: AZIT500T4 PO
--- NOTE | 2021-04-29 10:46 | PHYS DOC ---
Past Medical History Past Medical History: Other Additional Past Medical Histor: PALPITATIONS, HEP C (status post treatment), SVT, COVID Past Surgical History: Hysterectomy, Tonsillectomy, Tubal ligation, Other Additional Past Surgical Histo: heart ablation Smoking Status: Never Smoker Alcohol Use: None Drug Use: None General Adult EDM: Chief Complaint: MULTIPLE COMPLAINTS HPI: HPI: Patient is a 51 year old female who present to ER for evaluation of generalized weakness, cough, trouble breathing, fever and chills, nausea vomiting diarrhea. Patient had the symptoms since April 18, she was tested positive for COVID-19 on last Tuesday. Patient stated that her symptoms actually getting worse. Patient denies any chest pain. Patient was not vaccinated for COVID-19. Review of Systems: Review of Systems: Constitutional: Positive for fever or chills. [] Eyes: Denies change in visual acuity. [] HENT: Denies nasal congestion or sore throat. [] Respiratory: Positive for cough or shortness of breath. [] Cardiovascular: Denies chest pain or edema. [] GI: Positive for abdominal pain, nausea, vomiting, bloody stools or diarrhea. [] : Denies dysuria. [] Musculoskeletal: Denies back pain, positive for joint pain and body ache Integument: Denies rash. [] Neurologic: Denies headache, focal weakness or sensory changes. [] Endocrine: Denies polyuria or polydipsia. [] Lymphatic: Denies swollen glands. [] Psychiatric: Denies depression or anxiety. [] Heart Score: C/O Chest Pain: N/A Risk Factors: Risk Factors: DM, Current or recent (<one month) smoker, HTN, HLP, family history of CAD, obesity. Risk Scores: Score 0 - 3: 2.5% MACE over next 6 weeks - Discharge Home Score 4 - 6: 20.3% MACE over next 6 weeks - Admit for Clinical Observation Score 7 - 10: 72.7% MACE over next 6 weeks - Early Invasive Strategies Allergies: Allergies: Allergies Coded Allergies Type Severity Reaction Last Updated Verified Penicillins Allergy Intermediate Unknown 05/24/18 Yes Physical Exam: PE: Constitutional: Well developed, well nourished, no acute distress, non-toxic appearance. [] HENT: Normocephalic, atraumatic, bilateral external ears normal, oropharynx moist, no oral exudates, nose normal. [] Eyes: PERRLA, EOMI, conjunctiva normal, no discharge. [] Neck: Normal range of motion, no tenderness, supple, no stridor. [] Cardiovascular:Heart rate regular rhythm, no murmur [] Lungs & Thorax: Bilateral breath sounds with crackles at lung base to ausc ultation [] Abdomen: Bowel sounds normal, soft, no tenderness, no masses, no pulsatile masses. [] Skin: Warm, dry, no erythema, no rash. [] Back: No tenderness, no CVA tenderness. [] Extremities: No tenderness, no cyanosis, no clubbing, ROM intact, no edema. [] Neurologic: Alert and oriented X 3, normal motor function, normal sensory function, no focal deficits noted. [] Psychologic: Affect normal, judgement normal, mood normal. [] Current Patient Data: Labs: Laboratory Tests Test 04/29/21 11:00 04/29/21 12:51 White Blood Count 3.9 x10^3/uL Red Blood Count 4.45 x10^6/uL Hemoglobin 13.4 g/dL Hematocrit 39.1 % Mean Corpuscular Volume 88 fL Mean Corpuscular Hemoglobin 30 pg Mean Corpuscular Hemoglobin Concent 34 g/dL Red Cell Distribution Width 14.2 % Platelet Count 180 x10^3/uL Neutrophils (%) (Auto) 81 % Lymphocytes (%) (Auto) 13 % Monocytes (%) (Auto) 6 % Eosinophils (%) (Auto) 0 % Basophils (%) (Auto) 0 % Neutrophils # (Auto) 3.2 x10^3/uL Lymphocytes # (Auto) 0.5 x10^3/uL Monocytes # (Auto) 0.2 x10^3/uL Eosinophils # (Auto) 0.0 x10^3/uL Basophils # (Auto) 0.0 x10^3/uL Sodium Level 141 mmol/L Potassium Level 3.5 mmol/L Chloride Level 102 mmol/L Carbon Dioxide Level 29 mmol/L Anion Gap 10 Blood Urea Nitrogen 6 mg/dL Creatinine 0.8 mg/dL Estimated GFR (Cockcroft-Gault) 75.6 BUN/Creatinine Ratio 8 Glucose Level 102 mg/dL Calcium Level 8.3 mg/dL Magnesium Level 2.2 mg/dL Total Bilirubin 0.4 mg/dL Aspartate Amino Transf (AST/SGOT) 39 U/L Alanine Aminotransferase (ALT/SGPT) 37 U/L Alkaline Phosphatase 68 U/L Total Protein 7.4 g/dL Albumin 3.0 g/dL Albumin/Globulin Ratio 0.7 Lactic Acid Level 1.3 mmol/L Current Medications Medications (Trade) Dose Ordered Sig/Demar Route PRN Reason Start Time Stop Time Status Last Admin Dose Admin Sodium Chloride 1,000 ml @ 1,000 mls/hr 1X ONCE IV 04/29/21 11:00 04/29/21 11:59 DC 04/29/21 11:09 Methylprednisolone Sodium Succinate (SOLU-Medrol 125MG VIAL) 125 mg 1X ONCE IV 04/29/21 12:00 04/29/21 12:01 DC 04/29/21 12:55 Levofloxacin/ Dextrose 150 ml @ 100 mls/hr 1X ONCE IV 04/29/21 12:00 04/29/21 13:29 DC 04/29/21 14:20 Casirivimab 600 mg/Imdevimab 600 mg/Sodium Chloride 50 ml @ 150 mls/hr 1X ONCE IV 04/29/21 13:00 04/29/21 13:19 DC 04/29/21 13:49 Laboratory Tests Test 04/29/21 11:00 White Blood Count 3.9 x10^3/uL Red Blood Count 4.45 x10^6/uL Hemoglobin 13.4 g/dL Hematocrit 39.1 % Mean Corpuscular Volume 88 fL Mean Corpuscular Hemoglobin 30 pg Mean Corpuscular Hemoglobin Concent 34 g/dL Red Cell Distribution Width 14.2 % Platelet Count 180 x10^3/uL Neutrophils (%) (Auto) 81 % Lymphocytes (%) (Auto) 13 % Monocytes (%) (Auto) 6 % Eosinophils (%) (Auto) 0 % Basophils (%) (Auto) 0 % Neutrophils # (Auto) 3.2 x10^3/uL Lymphocytes # (Auto) 0.5 x10^3/uL Monocytes # (Auto) 0.2 x10^3/uL Eosinophils # (Auto) 0.0 x10^3/uL Basophils # (Auto) 0.0 x10^3/uL Sodium Level 141 mmol/L Potassium Level 3.5 mmol/L Chloride Level 102 mmol/L Carbon Dioxide Level 29 mmol/L Anion Gap 10 Blood Urea Nitrogen 6 mg/dL Creatinine 0.8 mg/dL Estimated GFR (Cockcroft-Gault) 75.6 BUN/Creatinine Ratio 8 Glucose Level 102 mg/dL Calcium Level 8.3 mg/dL Magnesium Level 2.2 mg/dL Total Bilirubin 0.4 mg/dL Aspartate Amino Transf (AST/SGOT) 39 U/L Alanine Aminotransferase (ALT/SGPT) 37 U/L Alkaline Phosphatase 68 U/L Total Protein 7.4 g/dL Albumin 3.0 g/dL Albumin/Globulin Ratio 0.7 Current Medications Medications (Trade) Dose Ordered Sig/Demar Route PRN Reason Start Time Stop Time Status Last Admin Dose Admin Sodium Chloride 1,000 ml @ 1,000 mls/hr 1X ONCE IV 04/29/21 11:00 04/29/21 11:59 DC 04/29/21 11:09 Methylprednisolone Sodium Succinate (SOLU-Medrol 125MG VIAL) 125 mg 1X ONCE IV 04/29/21 12:00 04/29/21 12:01 DC Levofloxacin/ Dextrose 150 ml @ 100 mls/hr 1X ONCE IV 04/29/21 12:00 04/29/21 13:29 Vital Signs: Vital Signs Date Time Temp Pulse Resp B/P (MAP) Pulse Ox O2 Delivery O2 Flow Rate FiO2 04/29/21 10:10 99.9 91 16 98/54 (110) 95 Room Air 99.9 EKG: EKG: [] Radiology/Procedures: Radiology/Procedures: [][facility] [address] [place] [address] IMAGING REPORT Signed PATIENT: JEREMIAH KENNEY ACCOUNT: [id number] : 1970 LOCATION: ER AGE: 51 SEX: F EXAM STATUS: REG ER ORD. PHYSICIAN: LUTHER COBB DO REASON: SHORTNESS OF AIR, COVID-19 INFECTION SINCE 04/18 PROCEDURE: CHEST AP ONLY INDICATION: Reason: SHORTNESS OF AIR, COVID-19 INFECTION SINCE 04/18 / Spl. Instructions: / History: COMPARISON: August 2018 FINDINGS: Single view of chest obtained. Cardiac silhouette is similar to prior. Degenerative changes the spine. Bilateral pulmonic opacities most severe at the left lower lung. IMPRESSION: * Bilateral pulmonic opacities most severe at the left lower lung which could be from infiltrate. Electronically signed by: Oliverio Isbell MD (04/29/2021 12:08 PM) [id number] DICTATED and SIGNED BY: OLIVERIO ISBELL MD DATE: 04/29/21 [id number] 0 Course & Med Decision Making: Course & Med Decision Making Pertinent Labs and Imaging studies reviewed. (See chart for details) Patient is a 51-year-old female who present to ER due to cough, fever and chills, trouble breathing. Patient was tested positive recently for COVID-19. Patient oxygen saturation is 95 to 96% on room air. Patient meets criteria for outpatient COVID-19 treatment to prevent worsening disease based on age greater than 50 . 1) Patient has been given the fact sheet for patients and caregivers for COVID 19 and treatment 2) informed of alternatives to receiving what is REGEN-CoV - Casirivimab + Imdevimab 3) Patient informed that Regen-CoV is an approved drug and is authorized by the FDA under emergency use authorization. Basic-Fit Disclaimer: Basic-Fit Disclaimer: This electronic medical record was generated, in whole or in part, using a voice recognition dictation system. Departure Departure Impression: Primary Impression: Pneumonia due to COVID-19 virus Disposition: 01 HOME / SELF CARE / HOMELESS Condition: IMPROVED Referrals: DANIEL HYDE PA-C (PCP) Follow up with your doctor on Tuesday for reevaluation. Patient Instructions: Pneumonia, Adult Additional Instructions: Thank you for visiting our Emergency Department. We appreciate you trusting us with your care. If any additional problems come up don't hesitate to return to visit us. Please follow up with your primary care provider so they can plan additional care if needed and know about the problem that you had. If symptoms worsen come back to the Emergency Department. Any concerning symptoms that start such as chest pain, shortness of air, weakness or numbness on one side of the body, running high fevers or any other concerning symptoms return to the ER. You have been tested for or diagnosed with COVID-19. It is an infection caused by a new type of coronavirus. COVID-19 will cause cold-like or mild flu symptoms in most. It can cause more severe symptoms like problems breathing in some. There is no treatment for COVID-19. The body will clear the infection over time. Self-care will help to ease discomfort. Steps to Take: Self-Care Rest as needed. Healthy habits may help you feel better. Steps include: Choose healthy foods including fruits and vegetables. Drink water throughout the day. Get plenty of sleep each night. If you smoke, try to quit. It may ease breathing. Avoid alcohol. Keep Others Healthy The virus can spread to others. Droplets are released every time you sneeze or cough. The droplets can get into the mouth, nose, or eyes of people near you and lead to infection. To lower the chances of spreading COVID-19 to others: Stay at home until your doctor has said it is safe to leave. If you tested positive this will mean staying isolated until both of the following are true: At least 7 days have passed since the start of illness. You are free of fever for at least 72 hours without the use of medicine. During this time: - Avoid public areas, events, or transportation. Do not return to work or school until your doctor has said it is safe to do so. - Call ahead if you need to go to a medical center. Let them know you may have COVID-19. It will help them guide you where to go. They may also ask you to wear a facemask when you come to the office. - If you call for emergency medical services, let them know you may have COVID- 19. While at home: - Try to avoid close contact with others. Stay about 6 feet away. - If possible, spend most of your time in a separate room from others. - Use a face mask if you will be in close contact with others such as sharing a room or vehicle. - Have someone wipe down common surfaces in the home. Use household employment director every day on areas like doorknobs, counters, or sinks. - Cough or sneeze into a tissue. Throw the tissue away right after use. If a tissue is not available, cough or sneeze into your elbow. - Wash your hands often. Wash them after sneezing or coughing. Use soap and water and wash for at least 20 seconds. Alcohol based hand supervisor bottle house cleaners can be used if soap and water is not available. - Do not prepare food for others. Avoid sharing personal items like forks, spoons, or toothbrushes. - Avoid close contact with pets while you are sick. There is no evidence of the virus passing to pets. This is a safety step until more is known about this virus. Isolation can be frustrating. Social interaction can help. Keep in touch with friends and family through phone and tech options. You can still interact with others in your home, just keep a safe distance of about 6 feet. Follow-up: Your doctors office will check in with you to see if there are any changes in your health. You may be asked to keep track of symptoms to share with them. They will also let you know when you are clear to be in public again. Problems to Look Out For: Contact your doctor if your recovery is not going as you expect. Get emergency care if you have problems such as: - Trouble breathing - Nonstop chest pain or pressure - Changes in awareness, confusion, or problems waking - Lips or face have bluish color - Worsening of symptoms If you think you have an emergency, call for emergency medical services right away. As taken from [employer] Promethazine Hcl (PROMETHAZINE HCL) 25 Mg Tablet 1 TAB PO PRN Q6HRS PRN for NAUSEA, #20 TAB Prov: LUTHER COBB DO 04/29/21 Levofloxacin (LEVOFLOXACIN) 750 Mg Tablet 1 TAB PO DAILY, #5 TAB Prov: LUTHER COBB DO 04/29/21 LUTHER COBB DO Apr 29, 2021 10:46
[2021-04-29] MEDS ORDERED: IV NORMAL SALINE 1000ML BAG 1,000 ML IV ONE (11:00)
[2021-04-29 11:15] LABS: BASO % 0 % (0-3); EOS % 0 % (0-3); HEMATOCRIT 39.1 % (36.0-47.0); HEMOGLOBIN 13.4 g/dL (12.0-15.5); LYMPH # 0.5 x10^3/uL (1.0-4.8); LYMPH % 13 % (24-48); MEAN CORPUSCULAR HEMOGLOBIN 30 pg (25-35); MEAN CORPUSCULAR HGB CONC 34 g/dL (31-37); MEAN CORPUSCULAR VOLUME 88 fL (79-100); MONO # 0.2 x10^3/uL (0.0-1.1); MONO % 6 % (0-9); NEUT # 3.2 x10^3/uL (1.8-7.7); NEUT % 81 % (31-73); PLATELET COUNT 180 x10^3/uL (140-400); RED BLOOD COUNT 4.45 x10^6/uL (3.50-5.40); RED CELL DISTRIBUTION WIDTH 14.2 % (11.5-14.5); WHITE BLOOD COUNT 3.9 x10^3/uL (4.0-11.0)
[2021-04-29 11:36] LABS: CALCIUM 8.3 mg/dL (8.5-10.1); CREATININE 0.8 mg/dL (0.6-1.0); GFR 75.6; POTASSIUM 3.5 mmol/L (3.5-5.1)
[2021-04-29 11:40] LABS: ALBUMIN/GLOBULIN RATIO 0.7 (1.0-1.7); MAGNESIUM 2.2 mg/dL (1.8-2.4); TOTAL BILIRUBIN 0.4 mg/dL (0.2-1.0); TOTAL PROTEIN 7.4 g/dL (6.4-8.2)
[2021-04-29] MEDS ORDERED: methylPREDNISolone SOD SUCC PF 125 MG/2 ML VIAL. IV ONE (12:00)
--- NOTE | 2021-04-29 12:11 | RAD ---
INDICATION: Reason: SHORTNESS OF AIR, COVID-19 INFECTION SINCE 04/18. Instructions: / History: COMPARISON: August 2018 FINDINGS: Single view of chest obtained. Cardiac silhouette is similar to prior. Degenerative changes the spine. Bilateral pulmonic opacities most severe at the left lower lung. IMPRESSION: * Bilateral pulmonic opacities most severe at the left lower lung which could be from infiltrate. Electronically signed by: Blake Yarbrough MD (04/29/2021 12:08 PM) [id number]
[2021-04-29] MEDS ORDERED: CASIRIVIMAB/IMDEVIMAB 600/600mg in IV NS TV=50 ML IV ONE (13:00)
[2021-04-29 14:52] VITALS: BP 101/56
[2021-04-29] MEDS ORDERED: LEVO750T5 PO (15:25)
[2021-04-29] MEDS ORDERED: PROM25TA10 PO (15:25)
[2021-04-29] MEDS ORDERED: ONDANSETRON ODT 4 MG TAB.RAPDIS. PO ONE (16:00)
== END 2021-04-29 16:01 | disposition home or self-care (01) ==
LOC: ER 09:48
DX: U07.1 COVID-19 (principal); J12.82 Pneumonia due to coronavirus disease 2019; Z88.0 Allergy status to penicillin
CPT/HCPCS: 36415; 71045; 80053; 83605; 83735; 85025; 87040; 96361; 96365; 96367; 96375; 99285; J1956; J2930; J7030; Q0243

== ENCOUNTER → 2021-05-05 | Outpatient (CLI) | payer BC ==
[2021-04-29 14:52] VITALS: BP 101/56
[~2021-05-05] MED LIST changes: +LEVO750T5 PO; +PROM25TA10 PO
--- NOTE | 2021-05-05 12:26 | RAD ---
EXAM: Chest, 2 views. HISTORY: Covid pneumonia. COMPARISON: 04/29/2021 FINDINGS: 2 views of the chest are obtained. There has been slight interval increase in focal right u pper lobe and lower lobe opacity and there is slight interval decrease in lateral left upper and lowe r lobe opacity due to suspected multifocal infiltrate. There is no pleural effusion or pneumothorax. The heart is normal in size. IMPRESSION: Suspected slight increased right upper and lower lobe and decreased left upper and lower lobe multifocal infiltrate. Follow up to confirm resolution and exclude an underlying lesion. Electronically signed by: Cecily Stevens MD (05/05/2021 12:23 PM) [id number]
== END ==
LOC: RAD 10:19
PROVIDERS: ATTEND Physician Assistant Medical
DX: U07.1 COVID-19 (principal)
CPT/HCPCS: 71046

== ENCOUNTER → 2021-05-07 | Outpatient (CLI) | payer BC ==
[2021-04-29 14:52] VITALS: BP 101/56
[~2021-05-07] MED LIST changes: +CONTRAST GIVEN. MC PRN; +IOHEXOL 300 MG/ML 100ML VIAL. IV ONE
--- NOTE | 2021-05-07 14:00 | KCIC ---
CT angiography of the chest 05/07/2021 1:18 PM Indication: Dyspnea on exertion. History of Covid 19 pneumonia. Technique: Multiple contiguous axial images were obtained through the chest after administration of i ntravenous iodinated contrast. Coronal, sagittal, and 3-D MIP reformations were created. Comparison: Chest radiograph May 05, 2021. CT angiography of the chest and abdomen and pelvis March 04, 2021 Findings: There is no filling defect within central pulmonary arteries or evidence of acute pulmonary embolism. Heart size is normal. No significant pericardial effusion is identified. Multifocal mediastinal jh opathy is seen. Lymph nodes can be seen surrounding the distal trachea and in the subcarinal region. Small prevascular nodes noted. Bilateral hilar adenopathy is present. There is no pneumothorax or ple ural effusion. There are patchy groundglass and there is a mildly denser infiltrate throughout the b ilateral lungs. Areas of subsegmental atelectasis are noted scattered throughout the lungs. The appea pippa is consistent with an infectious or inflammatory process, consistent with provided history of C ovid 19 pneumonia. Limited visualization of the upper abdomen is unremarkable. Visualized thoracic ao rta is normal in course and contour. Impression: 1. No evidence of acute pulmonary embolism 2. Patchy groundglass slightly more dense infiltrates throughout the bilateral lungs. Pattern most li otto reflects an infectious or inflammatory process, and would be consistent with Covid [address] DOSING PQRS STATEMENT: One or more of the following individualized dose reduction techniques were utilized for this examinat ion: 1. Automated exposure control 2. Adjustment of the mA and/or kV according to patient size 3. Use of iterative reconstruction technique Electronically signed by: Deshawn Rodriguez MD (05/07/2021 1:57 PM) [id number]
== END ==
LOC: KCIC CT 13:14
PROVIDERS: ATTEND Physician Assistant Medical
DX: U07.1 COVID-19 (principal); R59.0 Localized enlarged lymph nodes; R91.8 Other nonspecific abnormal finding of lung field; J98.11 Atelectasis; R06.09 Other forms of dyspnea
CPT/HCPCS: 71275; Q9967

== ENCOUNTER → 2021-05-21 | Day surgery (SDC) | payer BC ==
[2021-04-29 14:52] VITALS: BP 101/56
[~2021-05-21] MED LIST changes: -CONTRAST GIVEN. MC PRN; -IOHEXOL 300 MG/ML 100ML VIAL. IV ONE
--- NOTE | 2021-05-21 13:33 | RAD ---
AP and Lateral Views of the Chest 05/21/2021 1:03 PM Indication: Reason: COVID APRIL 18, 2021. SHORTNESS OF BREATH ON EXERTION. / Spl. Instructions: / Mt story: Comparison: chest radiograph 05.05.21 Findings: Bilateral infiltrates have improved. Mild interstitial coarsening persists. There is mild left basilar scarring or atelectasis. No pneumothorax or pleural effusion is seen. Heart size is norm al. Bony thorax is in tact. Impression: Significantly improved bilateral infiltrates. Mild residual interstitial coarsening and l eft basilar atelectasis or scarring is seen. Electronically signed by: Deshawn Rodriguez MD (05/21/2021 1:31 PM) [id number]
== END | disposition home or self-care (01) ==
LOC: RAD 12:49
PROVIDERS: ATTEND Physician Assistant Medical
DX: R06.02 Shortness of breath (principal); J98.11 Atelectasis; Z87.891 Personal history of nicotine dependence; Z79.899 Other long term (current) drug therapy; Z88.0 Allergy status to penicillin
CPT/HCPCS: 71046